=== PATIENT | female | born 1955 | race African-American/Black ===

== ENCOUNTER 2018-04-02 15:18 | Emergency (ER) | END 2018-04-02 16:12 | disposition left against medical advice (07) ==

== ENCOUNTER 2018-12-06 11:48 | Day surgery (SDC) | payer OTHER ==
[~2018-12-06] VITALS: Ht 152.4 cm; Wt 94.7 kg
[~2018-12-06 11:48] MED LIST: ATEN100T PO; CIPR500T4 PO; DICY10CA40 PO; ONDA4TAB35 PO; ONDA4TAB8 PO; TRAM50TA2 PO
[2018-12-06 13:17] VITALS: Ht 152.4 cm; Wt 94.7 kg
[2018-12-06 13:37] VITALS: BP 210/101; PULSE 82; RESP 21
[2018-12-06] MEDS ORDERED: VITAMIN D3 (13:40)
[2018-12-06] MEDS ORDERED: ESCITALOPRAM (13:40)
[2018-12-06] MEDS ORDERED: MULTIVITAMIN (13:40)
--- NOTE | 2018-12-06 13:48 | PREAC ---
Date/Time of Note Date/Time of Note DATE: 12/06/18 TIME: 13:47 Anesthesia Eval and Record Evaluation Time Pre-Procedure Interview DATE: 12/06/18 TIME: 13:47 Age 63 Sex female NPO: 8 hrs Preoperative diagnosis SCREENING Planned procedure COLONOSCOPY Past Medical History Past Medical History: Includes Cardio: HTN GI: Obesity Surgery & Anesthesia Issues No known issue Meds Anticoagulation: No Beta Justine within 24 hr: No Reason Beta Justine not given: Pt. not on B-Justine Reported Medications [Multivitamin] No Conflict Check 12/06/18 [Vitamin D3] No Conflict Check 12/06/18 [Escitalopram] No Conflict Check 12/06/18 Atenolol* (Atenolol*) 100 Mg Tablet, 100 MG PO DAILY, #30 01/04/16 Discontinued Scripts Ondansetron Hcl* (Zofran* ODT) 4 mg -ODT Tab.disper, 4 MG PO Q6 PRN for NAUSEA AND/OR VOMITING, #30 TAB Prov:LILIA REAGAN MD 04/16/16 Dicyclomine HCl (Dicyclomine HCl) 10 Mg Capsule, 10 MG PO TID PRN for abdominal cramping, #30 CAP Prov:LILIA REAGAN MD 04/16/16 Ondansetron Hcl* (Zofran*) 4 Mg Tablet, 4 MG PO Q6H for NAUSEA AND/OR VOMITING, #14 TAB Prov:KAYKAY SOTELO MD 01/04/16 Tramadol HCl (Tramadol HCl) 50 Mg Tablet, 50 MG PO Q6 PRN for PAIN, #20 TAB Prov:KAYKAY SOTELO MD 01/04/16 Ciprofloxacin Hcl* (Ciprofloxacin Hcl*) 500 Mg Tablet, 500 MG PO BID for 7 Days, TAB Prov:KAYKAY SOTELO MD 01/04/16 Meds reviewed: Yes Allergies Coded Allergies: No Known Allergies (Verified Allergy, Mild, 03/03/10) Allergies Reviewed: Yes Labs/Studies Labs Reviewed: Reviewed by anesthesiologist test: N/A Pre-procedure Exam Last vitals Vital Signs Date Temp Pulse Resp B/P (MAP) Pulse Ox O2 O2 Flow FiO2 Time Delivery Rate 12/06/18 97.3 82 21 210/101 98 Room Air 13:37 (137) Airway: Adequate mouth opening, Adequate thyromental dist Mallampati: Mallampati II Teeth: Normal Lung: Normal Heart: Normal ASA Physical Status ASA physical status: 2 Emergency: None Planned Anesthetic General/MAC: MAC Planned Pain Management Parenteral pain med Pre-operative Attestations Prior to commencing anesthesia and surgery, the patient was re-evaluated, there was verification of: *The patient's identity *The results of appropriate recent lab work and preoperative vital signs *The above evaluation not changing prior to induction *Anesthetic plan, risk benefits, alternative and complications discussed with patient/family; questions answered; patient/family understands, accepts and wishes to proceed. FÉLIX NORTH Dec 06, 2018 13:48
[2018-12-06] MEDS ORDERED: EPHEDrine SULFATE 50 MG/5 ML SYG IV PRN (14:00)
[2018-12-06] MEDS ORDERED: ONDANSETRON 4 MG INJ IV PRN (14:00)
[2018-12-06] MEDS ORDERED: FENTAnyl 50 MCG/ML VIAL IV PRN (14:00)
[2018-12-06] MEDS ORDERED: LABETALOL HCL 20MG INJ IV PRN (14:00)
[2018-12-06] MEDS ORDERED: hydrALAzine 20 MG INJ IV PRN (14:00)
--- NOTE | 2018-12-06 14:25 | PAC ---
Date/Time of Note Date/Time of Note DATE: 12/06/18 TIME: 14:24 Post-Anesthesia Notes Post-Anesthesia Note Last documented vital signs Vital Signs Date Temp Pulse Resp B/P (MAP) Pulse Ox O2 O2 Flow FiO2 Time Delivery Rate 12/06/18 97.3 82 21 210/101 98 Room Air 1424 (137) Activity: WNL Respiratory function: WNL Cardiovascular function: WNL Mental status: Baseline Pain reasonably controlled: Yes Hydration appropriate: Yes Nausea/Vomiting absent: Yes FÉLIX NOTRH Dec 06, 2018 14:25
[2018-12-06 14:59] VITALS: BP 159/76; PULSE 72; RESP 20
== END 2018-12-06 16:52 | disposition home or self-care (01) ==
LOC: GIL 11:48
PROVIDERS: ATTEND Internal Medicine Gastroenterology
DX: Z12.11 Encounter for screening for malignant neoplasm of colon (principal); D12.5 Benign neoplasm of sigmoid colon; K64.8 Other hemorrhoids; I10 Essential (primary) hypertension
CPT/HCPCS: 45380; 88305; Z7610

== ENCOUNTER 2019-04-20 16:16 | Emergency (ER) | payer OTHER ==
[~2019-04-20] VITALS: Ht 165.1 cm; Wt 95.5 kg
[~2019-04-20 16:16] MED LIST changes: -CIPR500T4 PO; -DICY10CA40 PO; +ESCITALOPRAM; +MULTIVITAMIN; +ONDA4TAB14 PO; -ONDA4TAB35 PO; -ONDA4TAB8 PO; -TRAM50TA2 PO; +VITAMIN D3
[2019-04-20 16:20] VITALS: Ht 165.1 cm; Wt 95.5 kg
[2019-04-20] MEDS ORDERED: ONDANSETRON 4 MG INJ IV STA (18:02)
[2019-04-20] MEDS ORDERED: morphine 4 MG/ML VIAL IV STA (18:02)
[2019-04-20] MEDS ORDERED: SOD CHLORIDE 0.9% 1,000 ML IV STA (18:02)
[2019-04-20] MEDS ORDERED: FAMOTIDINE 20 MG INJ IV STA (18:02)
--- NOTE | 2019-04-20 18:08 | ERD ---
ER Documentation Chief Complaint Chief Complaint pt c/o n/v xam with mild abdominal pain HPI This is a 63-year-old female with a past medical history of hypertension the presents to the emergency department complaining of a sudden onset of abdominal cramping that began at 5 AM this morning, 13 hours prior to arrival. The patient complains of multiple episodes of nonbloody nonbilious emesis and nausea. She denies any diarrhea. The patient indicates she has had multiple similar episodes of this over the past 30 years. She has been seen by multiple specialists including GI physicians who are unable to find a specific diagnosis. She attributed this to possible food related illness. Therefore the patient became a vegetarian 3 years ago and states she has not had any similar episodes for the past 3 years. She does believe today that some of the food she could have eaten have been mixed with meat. She denies any chest pain. No shortness of breath. The pain in the abdomen does not radiate to the back. It is an inte rmittent abdominal cramping. She states the pain is 8 out of 10 in intensity. No headache. No chest pain. No shortness of breath. No hemoptysis no hematemesis no melanotic stools. ROS All systems reviewed and are negative except as per history of present illness. 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 Well-nourished. Patient tearful and appeared to be in pain. HEENT:Normocephalic. Atraumatic.Pupils were equal round reactive to light. Dry mucous membranes.No tonsillar exudates. Neck: No nuchal rigidity. No lymphadenopathy. No posterior cervical spine tenderness or step-offs. Respiratory: Not using accessory muscles of respiration.Lungs were clear to auscultation bilaterally. No rhonchi. No rales. No wheezing. Cardiovascular: Regular rate regular rhythm.No murmurs. No rubs were appreciated.S1, S2 normal. Distal pulses are palpable 2+ bilaterally. GI: Abdomen was soft. No tenderness the right lower quadrant over McBurney's point. Psoas sign negative. Obturator sign negative. Non Distended. No pulsatile abdominal masses or bruits. No rebound. No guarding. Bowel sounds were present and normal. Muscle skeletal: Full range of motion of both the upper and lower extremities bilaterally.Normal muscle tone.No assymetrical calf tenderness or swelling. Skin: No petechia, no purpura. No lesions on the palms or the soles of the feet. No maculopapular rash. NEURO: Patient was alert, awake, orientated x3.No facial droop. Gait observed and normal with no ataxia.Speech had regular rate and rhythm. No focal neurological deficits. Result Diagram: 04/20/19182204/20/193 Results 24 hrs Laboratory Tests Test 04/20/19 18:23 White Blood Count 9.2 10^3/ul Red Blood Count 4.84 10^6/ul Hemoglobin 14.4 g/dl Hematocrit 42.9 % Mean Corpuscular Volume 88.6 fl Mean Corpuscular Hemoglobin 29.8 pg Mean Corpuscular Hemoglobin Concent 33.6 g/dl Red Cell Distribution Width 13.2 % Platelet Count 253 10^3/UL Mean Platelet Volume 10.5 fl Immature Granulocytes % 0.500 % Neutrophils % 88.2 % Lymphocytes % 9.7 % Monocytes % 1.5 % Eosinophils % 0.0 % Basophils % 0.1 % Nucleated Red Blood Cells % 0.0 /100WBC Immature Granulocytes # 0.050 10^3/ul Neutrophils # 8.1 10^3/ul Lymphocytes # 0.9 10^3/ul Monocytes # 0.1 10^3/ul Eosinophils # 0.0 10^3/ul Basophils # 0.0 10^3/ul Nucleated Red Blood Cells # 0.0 10^3/ul Prothrombin Time 12.6 Sec Prothrombin Time Ratio 1.0 INR International Normalized Ratio 0.93 Activated Partial Thromboplast Time 30.1 Sec Urine Color YELLOW Urine Clarity SLIGHTLY CLOUDY Urine pH 6.0 Urine Specific [place] 1.024 Urine Ketones 2+ mg/dL Urine Nitrite NEGATIVE mg/dL Urine Bilirubin NEGATIVE mg/dL Urine Urobilinogen NEGATIVE mg/dL Urine Leukocyte Esterase NEGATIVE Soo/ul Urine Microscopic RBC 5 /HPF Urine Microscopic WBC 5 /HPF Urine Squamous Epithelial Cells FEW /HPF Urine Bacteria FEW /HPF Urine Mucus FEW /HPF Urine Hemoglobin NEGATIVE mg/dL Urine Glucose NEGATIVE mg/dL Urine Total Protein 2+ mg/dl Sodium Level 144 mmol/L Potassium Level 3.5 mmol/L Chloride Level 106 mmol/L Carbon Dioxide Level 22 mmol/L Anion Gap 16 Blood Urea Nitrogen 11 mg/dl Creatinine 0.72 mg/dl Est Glomerular Filtrat Rate mL/min > 60 mL/min Glucose Level 183 mg/dl Calcium Level 10.6 mg/dl Total Bilirubin 1.3 mg/dl Direct Bilirubin 0.00 mg/dl Indirect Bilirubin 1.3 mg/dl Aspartate Amino Transf (AST/SGOT) 26 IU/L Alanine Aminotransferase (ALT/SGPT) 16 IU/L Alkaline Phosphatase 116 IU/L Troponin I < 0.012 ng/ml Total Protein 8.7 g/dl Albumin 5.0 g/dl Globulin 3.70 g/dl Albumin/Globulin Ratio 1.35 Amylase Level 73 U/L Lipase 40 U/L Current Medications Medications Dose Sig/Rolly Start Time Status Last (Trade) Ordered Route PRN Stop Time Admin Dose Reason Admin Sodium 1,000 ml @ Q1H STAT 04/20/19 DC 04/20/19 Chloride 1,000 mls/hr IV 18:02 18:14 04/20/19 19:01 Morphine 4 mg ONCE STAT 04/20/19 DC 04/20/19 Sulfate IV 18:02 18:15 (morphine) 04/20/19 18:05 Ondansetron 4 mg ONCE STAT 04/20/19 DC 04/20/19 HCl (Zofran IV 18:02 18:14 Inj) 04/20/19 18:05 Famotidine 20 mg ONCE STAT 04/20/19 DC 04/20/19 (Pepcid Iv) IV 18:02 18:14 04/20/19 18:05 Silver 1 applic ONCE ONCE 04/20/19 DC 04/20/19 Sulfadiazine TOP 19:00 18:52 (Thermazene 04/20/19 19:01 1% 25 Gm) Procedures/MDM This patient presented to the emergency department with abdominal pain and was seen and evaluated by myself. My differential diagnosis included but was not limited to abdominal aortic aneurysm, appendicitis, pancreatitis, perforated peptic ulcer, perforated viscus, Boerhaave's syndrome or visceral pain such as diverticulitis, DKA, esophagitis, hepatitis or bowel obstruction. The patient was placed on a grease rack worker, continuous pulse oximetry, and IV access was established by nursing staff. The patient did show signs of mild clinical dehydration was given a liter bolus of normal saline. She was also given intravenous morphine and Zofran for analgesia control. I obtained a 12- lead EKG tracing to rule for atypical myocardial infarction. 12 Lead EKG tracing ordered and reviewed by myself showed: Normal sinus rhythm of 65 bpm and no arrhythmia. OR interval normal. QRS duration normal. No ST segment elevation No ST segment depression. No changes consistent with acute ischemia. Patient no severe electrolyte abnormalities. I did not feel is necessary to obtain any diagnostic imaging of the patient's abdomen was benign with no peritoneal signs. After receiving IV fluids and analgesic medication with antiemetics the patient's symptoms are completely resolved. She was able to tolerate oral intake. She felt comfortable being discharged home. Observation Note: Time: 4 hours Family Hx: No Hypertension Evaluation: Multiple exams showed improving symptoms and no evidence of peritoneal signs or intractable emesis. Departure Diagnosis: Primary Impression: Nausea and vomiting Vomiting type: unspecified Vomiting Intractability: non-intractable Qualified Codes: R11.2 - Nausea with vomiting, unspecified Condition: FRANCESCO Juarez MD Apr 20, 2019 18:08
[2019-04-20] MEDS ORDERED: SILVER SULFADIAZINE 1% 25 GM CR TOP ONE (19:00)
[2019-04-20 20:10] VITALS: BP 161/89; PULSE 79; RESP 20
== END 2019-04-20 20:17 | disposition home or self-care (01) ==
LOC: E/R 16:16
DX: R11.2 Nausea with vomiting, unspecified (principal); I10 Essential (primary) hypertension; R10.9 Unspecified abdominal pain; Z87.891 Personal history of nicotine dependence
CPT/HCPCS: 80053; 81001; 82150; 83690; 84484; 85025; 85610; 85730; 87086; 93005; 96374; 96375; J2270; J2405; J7030; Z7502; Z7610